=== PATIENT | female | born 1985 | race Two or more races ===

== ENCOUNTER 2025-06-16 20:31 | Emergency (ER) | payer OTHER ==
[~2025-06-16] VITALS: Ht 157.5 cm; Wt 77.1 kg
[2025-06-16 20:42] VITALS: BP 150/84; TEMP 98.2
[2025-06-16] MEDS ORDERED: CLOB15OI3 TP (20:52)
[2025-06-16 21:09] VITALS: O2SAT 98
== END 2025-06-16 21:12 | disposition home or self-care (01) ==
LOC: ER 20:36
DX: R21 Rash and other nonspecific skin eruption (principal); L29.9 Pruritus, unspecified
CPT/HCPCS: 99283; Q0163; J7512